=== PATIENT | female | born 1975 | race Caucasian/White ===

== ENCOUNTER 2016-11-05 14:01 | Emergency (ER) | payer OTHER ==
--- NOTE | 2016-11-05 14:27 | ERNOTE ---
Back Pain ER HPI Date of Service: 11/05/16 Presenting Symptoms: hx chronic back pain, other - States that for the past 2 days she has had worsening pain in her tailbone Time Seen by Provider: 11/05/16 14:16 Source: patient Exam Limitations: no limitations Immunizations: IMMUNIZATION HX Immunizations Up to Date Yes History of Influenza Vaccine No Hx Pneumococcal Vaccination No Allergies/Adverse Reactions: Allergies No Known Allergies Allergy (Verified 11/05/16 14:17) Home Medications: HOME MEDICATIONS amLODIPine BESYLATE [Norvasc] 10 mg PO DAILY 02/03/13 [Last Taken 08/08/13] Hydrochlorothiazide [Hydrodiuril] 25 mg PO DAILY 04/12/15 [Last Taken Unknown] HYDROcodone/ACETAMINOPHEN [Aladdin 5-325] 1 tab PO Q4H PRN 11/05/16 [Last Taken Unknown] Meloxicam [Mobic] 15 mg PO DAILY 11/05/16 [Last Taken Unknown] RX: lamoTRIgine [Lamotrigine] 25 mg PO DAILY 11/05/16 [Last Taken Unknown] Ranitidine HCl [Zantac] 150 mg PO DAILY 11/05/16 [Last Taken Unknown] risperiDONE [Risperdal] 2 mg PO DAILY 11/05/16 [Last Taken Unknown] Time (Timing): 02:00 Timing: Reports: getting worse Quality/Severity: Reports: moderate, burning, throbbing Location of pain: Reports: other - coccyx. No radiation. 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 Recent Injury?: Reports: no Possible Precipitating Factor: Reports: none - Long travel Modifying Factors - (Improves): Reports: movement to right, movement to left Modifying Factors - (Worsens): Reports: upright position Associated Symptoms: Reports: none Review of Systems - Review of Systems Constitutional: Present: no symptoms reported Respiratory: Present: no symptoms reported Cardiology: Present: no symptoms reported Gastrointestinal/Abdominal: Present: no symptoms reported, other - Denies any combination. Genitourinary: Present: no symptoms reported Musculoskeletal: Present: other - Has chronic lower back pain which she states she takes norco. Has a contract at pain clinic. However complains of the pain at the top of her buttock cleft. Skin: Present: no symptoms reported, other - States she does have a history of pilonidal cyst. States this feels similar but cannot detect an infection. Neurological: Present: no symptoms reported Endocrine: Present: no symptoms reported Hematologic/Lymphatic: Present: no symptoms reported - Patient's Past Medical History Patient History - Medical: Bipolar, Chronic Pain, Depression Patient History - Cardiac/Respiratory: Hypertension Patient History - Cancer: No Hx of Cancer Patient History - Surgical Procedures: Cholecystectomy, D & C, Hysterectomy, Tubal Ligation, Other Patient History - Other: None - Family History Father Family History - Cardiac/Respiratory: Hypertension - Social History Living Situations: home Abuse History: No History of abuse Psych History: Hx of Anxiety, Hx of Depression Does anyone smoke in the home?: Yes Smoking Status: Current every day smoker Have you smoked in the past 12 months: Yes Alcohol Use: rarely Drug Use: other - Immunizations Immunizations Up to Date: Yes Hx Pneumococcal Vaccination: No History of Influenza Vaccine: No Physical Exam - Physical Exam General Appearance: Present: wd/wn, alert, no apparent distress Respiratory: Present: no respiratory distress, no accessory muscle use Back Exam: Present: other - Very tender with palpation over the upper coccyx. No abnormal bony structure. Patient switches position to the right and left depending on pain and comfort level. Appears to be uncomfortable sitting upright. Neurological Exam: Present: alert, oriented, normal mood/affect, no motor/ sensory deficits Skin Exam: Present: normal color, warm/dry, other - With RN Colbi, did inspect area in question. No erythema, swelling or indication of a cyst present in or around the gluteal area. ED Progress - Vital Signs Patient's Vital Signs:: I have reviewed the patient's vital signs. Vital Signs: Vital Signs 11/05/16 14:06 Temperature 36.5 C Pulse Rate 95 Respiratory 16 Rate Blood Pressure 129/75 O2 Sat by Pulse 96 Oximetry - X-Ray X-Ray #1 X-Ray: coccyx Interpretation: Reviewed by me - Progress/Reassessment Chief Complaint: Back Pain Progress:: Improved Departure Clinical Impression: Coccygeal pain, acute - Departure Disposition: Home Follow Up Needed Condition: Stable Instructions: Tailbone Injury, [id number] Additional Instructions: No acute fracture or signs of an abcess/cyst. Continue your home medication as you are. Should improve over the next several days. If not follow up with family provider or return to ER.
[2016-11-05] MEDS ORDERED: KETOROLAC TROMETHAMINE 60 MG/2 ML VIAL IM ONE ×2 (14:34→14:43)
--- OUTSIDE RECORDS SUMMARY | 2016-11-05 14:46 | XMS REPORT | Summary of Care ---
:1975 Author Organization [facility] Address [address] [place] [id number] Care Team Providers Name Role Phone Rolanda Garcia Primary Care Physician Encounter Date(s): 06/27/16 - 06/27/[address] [address] [facility] Discharge Diagnosis: Essential (primary) hypertension Discharge Diagnosis: Pure hyperglyceridemia Discharge Diagnosis: Lactose intolerance, unspecified Discharge Diagnosis: Allergic rhinitis, unspecified Discharge Diagnosis: Vitamin D deficiency, unspecified Discharge Diagnosis: Nicotine dependence, unspecified, uncomplicated Discharge Disposition: 01 Discharged to Home or Self Care Attending Physician: Rolanda Garcia MD Referring Physician: Rolanda Garcia MD Vital Signs Most recent to oldest [Reference Range]: 1 Temperature Tympanic [36.6-38.1 DegC] 36.7 DegC (06/27/16 9:17 AM) Temperature C to F 98.1 (06/27/16 9:17 AM) Peripheral Pulse Rate [60-100 bpm] 86 bpm (06/27/16 9:17 AM) Respiratory Rate [12-20 br/min] 16 br/min (06/27/16 9:17 AM) SpO2 [90-100 %] 97 % (06/27/16 9:17 AM) SpO2 Location Right hand (06/27/16 9:17 AM) Blood Pressure [90-130/60-90 mmHg] 118/74mmHg (06/27/16 9:17 AM) Mean Arterial Pressure, Cuff 89 mmHg (06/27/16 9:17 AM) Most recent to oldest [Reference Range]: 1 Height/Length Measured 162 cm (06/27/16 9:17 AM) Weight Dosing 80.6 kg (06/27/16 9:17 AM) Weight Measured 80.6 kg (06/27/16 9:17 AM) BSA Measured 1.86 m2 (06/27/16 9:17 AM) Body Mass Index Measured 30.71 kg/m2 (06/27/16 9:17 AM) Problem List Condition Effective Dates Status Health Status Informant Ankle pain(Confirmed) Active Back pain, chronic(Confirmed) Active Hypertension(Confirmed) Active Vitamin D deficiency(Confirmed) Active Allergies, Adverse Reactions, Alerts No Known Allergies Medications amLODIPine 10 mg oral tablet 1 tab(s), Oral, Daily, # 30 tab(s), 0 Refill(s), Start Date: 08/19/15 11:06:00 CDT Start Date: 08/19/15 Stop Date: 02/21/16 Status: DiscontinuedamLODIPine 10 mg oral tablet 1 tab(s), Oral, Daily, # 30 tab(s), 2 Refill(s), Start Date: 02/21/16 9:51:00 PAINT LINE OPERATOR, [facility]acy: [facility] [place] [place] Start Date: 02/21/16 Stop Date: 05/02/16 Status: CompletedamLODIPine 10 mg oral tablet 1 tab(s), Oral, Daily, # 30 tab(s), 2 Refill(s), Start Date: 05/02/16 11:23:44 PAINT LINE OPERATOR, [facility]acy: [facility] [place] [place] Start Date: 05/02/16 Status: Orderedamoxicillin 875 mg oral tablet 1 tab(s), Oral, BID, # 20 tab(s), 0 Refill(s), Start Date: 03/22/16 11:14:00 PAINT LINE OPERATOR , [place] Start Date: 03/22/16 Stop Date: 04/05/16 Status: CompletedAzithromycin 5 Day Dose Pack 250 mg oral tablet 1 packet(s), Oral, Per Package Label, as directed on package labeling, # 6 tab(s ), 0 Refill(s), Start Date: 03/31/16 8:53:00 PAINT LINE OPERATOR, Pharmacy: [facility] [place], [place] Special Instructions: as directed on package labeling Start Date: 03/31/16 Stop Date: 04/05/16 Status: CompletedBlack Cohosh 540 mg Black Cohosh 540 mg, 0 Refill(s), Supply Start Date: 08/19/15 Status: OrderedDaily Multiple for Women 1 tab(s), Oral, Daily, 0 Refill(s), Start Date: 08/19/15 11:09:00 CDT Start Date: 08/19/15 Status: OrderedDiflucan 150 mg oral tablet See Instructions, 1 tab(s) Oral every 72 hours x 3 doses, # 3 EA, 0 Refill(s), Start Date: 05/02/16 11:21:00 PAINT LINE OPERATOR, [facility]acy: [facility] [place] [place] Special Instructions: 1 tab(s) Oral every 72 hours x 3 doses Start Date: 05/02/16 Stop Date: 06/27/16 Status: CompletedDiflucan 150 mg oral tablet 1 tab(s), Oral, ONETIME, # 1 tab(s), 0 Refill(s), Start Date: 04/21/16 15:18:00 PAINT LINE OPERATOR, [facility]acy: [facility] [place] [place] Start Date: 04/21/16 Stop Date: 05/02/16 Status: CompletedDiflucan 150 mg oral tablet 1 tab(s), Oral, ONETIME, # 1 tab(s), 0 Refill(s), Start Date: 04/05/16 11:56:00 PAINT LINE OPERATOR Start Date: 04/05/16 Stop Date: 05/02/16 Status: Completedgabapentin 300 mg oral capsule 2 cap(s), Oral, TID, 0 Refill(s), Start Date: 02/14/16 9:51:00 CDT Start Date: 02/14/16 Status: OrderedhydroCHLOROthiazide 25 mg oral tablet 1 tab(s), Oral, Daily, # 30 tab(s), 2 Refill(s), Start Date: 02/21/16 9:57:00 PAINT LINE OPERATOR, Pharmacy: [facility] [place] [place] Start Date: 02/21/16 Stop Date: 05/02/16 Status: Completedhydrochlorothiazide 25 mg oral tablet 1 tab(s), Oral, Daily, # 30 tab(s), 0 Refill(s), Start Date: 08/19/15 11:07:00 CDT Start Date: 08/19/15 Stop Date: 02/21/16 Status: DiscontinuedhydroCHLOROthiazide 25 mg oral tablet 1 tab(s), Oral, Daily, # 30 tab(s), 2 Refill(s), Start Date: 05/02/16 11:23:43 PAINT LINE OPERATOR, [facility]acy: [facility] [place] [place] Start Date: 05/02/16 Status: OrderedHYDROcodone-acetaminophen 5 mg-325 mg oral tablet 1 tab(s), Oral, q6hr, X 30 days, # 120 tab(s), 0 Refill(s), Start Date: 11:23:00 CDT, other reason (Rx) Start Date: 08/19/15 Stop Date: 09/18/15 Status: CompletedHYDROcodone-acetaminophen 5 mg-325 mg oral tablet 0 Refill(s), Start Date: 08/19/15 11:07:00 CDT Start Date: 08/19/15 Stop Date: 09/28/15 Status: Completedibuprofen 800 mg oral tablet 1 tab(s), Oral, TID, # 42 tab(s), 0 Refill(s), Start Date: 11/30/15 9:35:00 CDT , Pharmacy: [place], [place] Start Date: 11/30/15 Stop Date: 06/27/16 Status: CompletedLipitor 10 mg oral tablet 1 tab(s), Oral, Daily, # 30 tab(s), 5 Refill(s), Start Date: 06/27/16 9:56:00 CDT, Pharmacy: [place], [place] Start Date: 06/27/16 Status: OrderedMedrol 4 mg oral tablet 1 packet(s), Oral, ONETIME, as directed on package labeling, # 21 tab(s), 0 Refill(s), Start Date: 11/25/15 15:31:00 CDT, Pharmacy: [place], [place] Special Instructions: as directed on package labeling Start Date: 11/25/15 Stop Date: 02/14/16 Status: Completedmeloxicam 15 mg oral tablet 0.5 tab(s), Oral, BID, 0 Refill(s), Start Date: 06/27/16 9:20:00 CDT Start Date: 06/27/16 Status: OrderedNorco 5 mg-325 mg oral tablet 1 tab(s), Oral, q6hr, PRN for pain, # 48 tab(s), 0 Refill(s), Start Date: 13:42:00 CDT, other reason (Rx) Start Date: 09/16/15 Stop Date: 09/28/15 Status: CompletedNorco 5 mg-325 mg oral tablet 1 tab(s), Oral, q6hr, PRN for pain, written RX given to patient, # 120 tab(s), 0 Refill(s), Start Date: 10/28/15 15:19:28 CDT, other reason (Rx) Special Instructions: written RX given to patient Start Date: 10/28/15 Status: OrderedNorco 5 mg-325 mg oral tablet 1 tab(s), Oral, q6hr, PRN for pain, written RX given to patient, # 120 tab(s), 0 Refill(s), Start Date: 09/28/15 9:18:00 CDT, other reason (Rx) Special Instructions: written RX given to patient Start Date: 09/28/15 Stop Date: 10/28/15 Status: CompletedOmnicef 300 mg oral capsule 1 cap(s), Oral, q12hr, # 20 cap(s), 0 Refill(s), Start Date: 04/05/16 11:56:00 PAINT LINE OPERATOR Start Date: 04/05/16 Stop Date: 05/02/16 Status: CompletedoxyCODONE-acetaminophen 5 mg-325 mg oral tablet See Instructions, 1 tab(s) Oral q4-6hr interval Max 7 per day, # 90 tab(s), 0 Refill(s), Start Date: 08/19/15 11:21:00 CDT Special Instructions: 1 tab(s) Oral q4-6hr interval Max 7 per day Start Date: 08/19/15 Stop Date: 08/19/15 Status: Discontinuedpolymyxin B-trimethoprim 10,000 units-1 mg/mL ophthalmic solution 2 drop(s), Eye-Both, QID, X 7 days, # 10 mL, 0 Refill(s), Start Date: 05/02/16 11:28:00 PAINT LINE OPERATOR, Pharmacy: [place], [place] Start Date: 05/02/16 Stop Date: 05/09/16 Status: Completedpotassium chloride 99 mg oral tablet 1 tab(s), Oral, Daily, # 100 tab(s), 0 Refill(s), Start Date: 08/19/15 11:08:00 CDT Start Date: 08/19/15 Status: OrderedVitamin B-12 1000 mcg oral tablet 1 tab(s), Oral, Daily, 0 Refill(s), Start Date: 08/19/15 11:10:00 CDT Start Date: 08/19/15 Status: OrderedVitamin C 500 mg oral tablet 1 tab(s), Oral, Daily, # 30 tab(s), 0 Refill(s), Start Date: 08/19/15 11:09:00 CDT Start Date: 08/19/15 Status: OrderedVitamin D3 1000 intl units oral tablet 1 tab(s), Oral, Daily, # 30 tab(s), 0 Refill(s), Start Date: 06/27/16 9:46:00 CDT Start Date: 06/27/16 Status: OrderedVitamin D3 50,000 intl units oral capsule 1 cap(s), Oral, q7day, # 12 cap(s), 0 Refill(s), Start Date: 03/23/16 11:08:00 PAINT LINE OPERATOR, Pharmacy: [place], [place] Start Date: 03/23/16 Stop Date: 03/24/16 Status: DiscontinuedVitamin D3 50,000 intl units oral capsule 1 cap(s), Oral, q7day, Prior auth rec'd for approval for 4 every 30 days, # 4 cap(s), 5 Refill(s), Start Date: 03/24/16 15:10:05 PAINT LINE OPERATOR, Pharmacy: [place], [place] Special Instructions: Prior auth rec'd for approval for 4 every 30 days Start Date: 03/24/16 Stop Date: 06/27/16 Status: DiscontinuedVitamin D3 5000 intl units oral tablet 1 tab(s), Oral, Daily, # 100 tab(s), 0 Refill(s), Start Date: 08/19/15 11:10:00 CDT Start Date: 08/19/15 Stop Date: 06/27/16 Status: DiscontinuedZofran ODT 4 mg oral tablet, disintegrating 1 tab(s), Oral, q8hr interval, PRN nausea, # 30 tab(s), 0 Refill(s), Start Date : 02/14/16 10:26:00 CDT, Pharmacy: [facility] [place] [place] Start Date: 02/14/16 Stop Date: 06/27/16 Status: CompletedZyrTEC 10 mg oral tablet 1 tab(s), Oral, Daily, # 30 tab(s), 0 Refill(s), Start Date: 08/19/15 11:13:00 CDT Start Date: 08/19/15 Status: Ordered Results No data available for this section Immunizations Vaccine Date Refusal Reason influenza virus vaccine, inactivated 02/14/16 tetanus-diphth toxoids (Td) adult/adol 06/27/16 Procedures Procedure Date Related Diagnosis Body Site Dilation and curettage Hysterectomy Removal of gallbladder Rotator cuff repair Tubal ligation Social History No data available for this section Assessment and Plan No data available for this section
--- OUTSIDE RECORDS SUMMARY | 2016-11-05 14:46 | XMS REPORT | Summary of Care ---
:1975 Author Organization [facility] Address [address] [place] [id number] Care Team Providers Name Role Phone Rolanda Garcia Primary Care Physician Encounter Date(s): 07/24/16 - 07/24/[address] [address] [facility] Discharge Disposition: Discharged to Home or Self Care Attending Physician: Rolanda Garcia MD Referring Physician: Rolanda Garcia MD Vital Signs No data available for this section Problem List Condition Effective Dates Status Health [...] tab(s), 2 Refill(s), Start Date: 02/21/16 9:51:00 [address] LIGHT SERVICER, [facility] [place] [place] Start Date: 02/21/16 Stop Date: 05/02/16 Status: CompletedamLODIPine 10 mg oral tablet 1 tab(s), Oral, Daily, # 30 tab(s), 2 Refill(s), Start Date: 05/02/16 11:23:44 ST[address] LIGHT SERVICER, [facility]acy: [facility] [place] [place] Start Date: 05/02/16 Status: Orderedamoxicillin 875 mg oral tablet 1 tab(s), Oral, BID, # 20 tab(s), 0 Refill(s), Start Date: 03/22/16 11:14:00 [address] LIGHT SERVICER , Pharmacy: [facility] [place] [place] Start Date: 03/22/16 Stop Date: 04/05/16 Status: CompletedAzithromycin 5 Day Dose Pack 250 mg oral tablet 1 packet(s), Oral, Per Package Label, as directed on package labeling, # 6 tab(s ), 0 Refill(s), Start Date: 03/31/16 8:53:[address] LIGHT SERVICER, Pharmacy: [facility] [place] [place] Special Instructions: as directed on package [...] EA, 0 Refill(s), Start Date: 05/02/16 11:21:[address] LIGHT SERVICER, [place] [facility] [place] Special Instructions: 1 tab(s) Oral every 72 hours x 3 doses Start Date: 05/02/16 Stop Date: 06/27/16 Status: CompletedDiflucan 150 mg oral tablet 1 tab(s), Oral, ONETIME, # 1 tab(s), 0 Refill(s), Start Date: 04/21/16 15:18:[address] LIGHT SERVICER, Pharmacy: [facility] [place] [place] Start Date: 04/21/16 Stop Date: 05/02/16 Status: CompletedDiflucan 150 mg oral tablet 1 tab(s), Oral, ONETIME, # 1 tab(s), 0 Refill(s), Start Date: 04/05/16 11:56:[address] LIGHT SERVICER Start Date: 04/05/16 Stop Date: 05/02/16 Status: Completedgabapentin 300 mg oral capsule 2 cap(s), Oral, TID, 0 Refill(s), Start Date: 02/14/16 9:51:00 CDT Start Date: 02/14/16 Status: OrderedhydroCHLOROthiazide 25 mg oral tablet 1 tab(s), Oral, Daily, # 30 tab(s), 2 Refill(s), Start Date: 02/21/16 9:57:[address] LIGHT SERVICER, Pharmacy: [facility] [place] [place] Start Date: 02/21/16 Stop Date: 05/02/16 Status: Completedhydrochlorothiazide 25 mg oral tablet 1 tab(s), Oral, Daily, # 30 tab(s), 0 Refill(s), Start Date: 08/19/15 11:07:00 CDT Start Date: 08/19/15 Stop Date: 02/21/16 Status: DiscontinuedhydroCHLOROthiazide 25 mg oral tablet 1 tab(s), Oral, Daily, # 30 tab(s), 2 Refill(s), Start Date: 05/02/16 11:23:43 [address] LIGHT SERVICER, Pharmacy: [facility] [place] [place] Start Date: 05/02/16 Status: OrderedHYDROcodone-acetaminophen 5 [...] Start Date: 11/30/15 9:35:00 CDT , Pharmacy: [facility] [place], [place] Start Date: 11/30/15 Stop Date: 06/27/16 Status: CompletedLipitor 10 mg oral tablet 1 tab(s), Oral, Daily, # 30 tab(s), 5 Refill(s), Start Date: 06/27/16 9:56:00 CDT, [facility] [place] Start Date: 06/27/16 Status: OrderedMedrol 4 mg oral tablet 1 packet(s), Oral, ONETIME, as directed on package labeling, # 21 tab(s), 0 Refill(s), Start Date: 11/25/15 15:31:00 CDT, Pharmacy: [facility] [place], [place] Special Instructions: as directed on package [...] cap(s), 0 Refill(s), Start Date: 04/05/16 11:56:[address] LIGHT SERVICER Start Date: 04/05/16 Stop Date: 05/02/16 Status: [...] mL, 0 Refill(s), Start Date: 05/02/16 11:28:[address] LIGHT SERVICER, Pharmacy: [facility] [place] [place] Start Date: 05/02/16 Stop Date: 05/09/16 [...] cap(s), 0 Refill(s), Start Date: 03/23/16 11:08:[address] LIGHT SERVICER, [place]acy[place] Start Date: 03/23/16 Stop Date: 03/24/16 Status: DiscontinuedVitamin D3 50,000 intl units oral capsule 1 cap(s), Oral, q7day, Prior auth rec'd for approval for 4 every 30 days, # 4 cap(s), 5 Refill(s), Start Date: 03/24/16 15:10:[address] LIGHT SERVICER, Pharmacy: [place], [place] Special Instructions: Prior auth rec'd for [...] Start Date : 02/14/16 10:26:00 CDT, Pharmacy: [place], [place] Start Date: 02/14/16 Stop Date: 06/27/16 [...]
--- OUTSIDE RECORDS SUMMARY | 2016-11-05 14:46 | XMS REPORT | Summary of Care ---
:1975 Author Organization [facility] Care Team Providers Name Role Phone Rolanda Garcia Primary Care Physician Encounter Date(s): 09/26/16 - 09/26/16 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, Pharmacy: [facility], [place] Start Date: 02/21/16 Stop Date: 05/02/16 Status: CompletedamLODIPine 10 mg oral tablet 1 tab(s), Oral, Daily, # 30 tab(s), 2 Refill(s), Start Date: 05/02/16 11:23:44 VENEER SUPERVISOR, [facility] [place] [place] Start Date: 05/02/16 Stop Date: 08/25/16 Status: Completedamoxicillin 875 mg oral tablet 1 tab(s), Oral, BID, # 20 tab(s), 0 Refill(s), Start Date: 03/22/16 11:14:00 VENEER SUPERVISOR , Pharmacy: [facility] [place], [place] Start Date: 03/22/16 Stop Date: 04/05/16 Status: CompletedAzithromycin 5 Day Dose Pack 250 mg oral tablet 1 packet(s), Oral, Per Package Label, as directed on package labeling, # 6 tab(s ), 0 Refill(s), Start Date: 03/31/16 8:53:00 VENEER SUPERVISOR, Pharmacy: [facility] [place], [place] Special Instructions: as directed on package labeling Start Date: 03/31/16 Stop Date: 04/05/16 Status: CompletedBlack Cohosh 540 mg Black Cohosh 540 mg, 0 Refill(s), Supply Start Date: 08/19/15 Status: OrderedCipro 500 mg oral tablet 1 tab(s), Oral, BID, # 20 tab(s), 0 Refill(s), Start Date: 09/21/16 14:01:00 CDT , [facility] [place] Start Date: 09/21/16 Stop Date: 10/01/16 Status: OrderedDaily Multiple for Women 1 tab(s), Oral, Daily, 0 Refill(s), Start Date: 08/19/15 11:09:00 CDT Start Date: 08/19/15 Status: OrderedDiflucan 150 mg oral tablet See Instructions, 1 tab(s) Oral every 72 hours x 3 doses, # 3 EA, 0 Refill(s), Start Date: 05/02/16 11:21:00 VENEER SUPERVISOR, [facility] [place] [place] Special Instructions: 1 tab(s) Oral every 72 hours x 3 doses Start Date: 05/02/16 Stop Date: 06/27/16 Status: CompletedDiflucan 150 mg oral tablet 1 tab(s), Oral, ONETIME, # 1 tab(s), 0 Refill(s), Start Date: 04/21/16 15:18:00 VENEER SUPERVISOR, [facility] [place] Start Date: 04/21/16 Stop Date: 05/02/16 Status: CompletedDiflucan 150 mg oral tablet 1 tab(s), Oral, ONETIME, # 1 tab(s), 1 Refill(s), Start Date: 09/21/16 16:16:00 CDT, Pharmacy: [place], [place] Start Date: 09/21/16 Status: OrderedDiflucan 150 mg oral tablet 1 tab(s), Oral, ONETIME, # 1 tab(s), 0 Refill(s), Start Date: 04/05/16 11:56:00 VENEER SUPERVISOR Start Date: 04/05/16 Stop Date: 05/02/16 Status: Completedgabapentin 300 mg oral capsule 2 cap(s), Oral, TID, 0 Refill(s), Start Date: 02/14/16 9:51:00 CDT Start Date: 02/14/16 Status: OrderedhydroCHLOROthiazide 25 mg oral tablet 1 tab(s), Oral, Daily, # 30 tab(s), 2 Refill(s), Start Date: 02/21/16 9:57:00 VENEER SUPERVISOR, [facility] [place] Start Date: 02/21/16 Stop Date: 05/02/16 Status: Completedhydrochlorothiazide 25 mg oral tablet 1 tab(s), Oral, Daily, # 30 tab(s), 0 Refill(s), Start Date: 08/19/15 11:07:00 CDT Start Date: 08/19/15 Stop Date: 02/21/16 Status: DiscontinuedhydroCHLOROthiazide 25 mg oral tablet 1 tab(s), Oral, Daily, # 30 tab(s), 2 Refill(s), Start Date: 08/25/16 14:13:52 CDT, Pharmacy: [place], [place] Start Date: 08/25/16 Status: OrderedhydroCHLOROthiazide 25 mg oral tablet 1 tab(s), Oral, Daily, # 30 tab(s), 2 Refill(s), Start Date: 05/02/16 11:23:43 VENEER SUPERVISOR, Pharmacy: [facility] [place], [place] Start Date: 05/02/16 Stop Date: 08/25/16 Status: CompletedHYDROcodone-acetaminophen 5 mg-325 mg oral tablet 1 tab(s), [...] Start Date: 11/30/15 9:35:00 CDT , Pharmacy: [place], [place] Start Date: 11/30/15 Stop Date: 06/27/16 Status: CompletedLipitor 10 mg oral tablet 1 tab(s), Oral, Daily, # 30 tab(s), 5 Refill(s), Start Date: 06/27/16 9:56:00 CDT, Pharmacy: [place], [place] Start Date: 06/27/16 Status: OrderedMedrol 4 mg oral tablet 1 packet(s), Oral, ONETIME, as directed on package labeling, # 21 tab(s), 0 Refill(s), Start Date: 11/25/15 15:31:00 CDT, Pharmacy: [place], [place] Special Instructions: as directed on package labeling Start Date: 11/25/15 Stop Date: 02/14/16 Status: Completedmeloxicam 15 mg oral tablet 0.5 tab(s), Oral, BID, 0 Refill(s), Start Date: 06/27/16 9:20:00 CDT Start Date: 06/27/16 Status: OrderedmetroNIDAZOLE 500 mg oral tablet 1 tab(s), Oral, q8hr interval, # 42 tab(s), 0 Refill(s), Start Date: 09/16/16 13 :40:00 CDT, Pharmacy: [place], [place] Start Date: 09/16/16 Stop Date: 09/30/16 Status: OrderedNorco 5 mg-325 mg oral tablet [...] cap(s), 0 Refill(s), Start Date: 04/05/16 11:56:00 VENEER SUPERVISOR Start Date: 04/05/16 Stop Date: 05/02/16 Status: [...] mL, 0 Refill(s), Start Date: 05/02/16 11:28:00 VENEER SUPERVISOR, Pharmacy: [facility] [place], [place] Start Date: 05/02/16 Stop Date: 05/09/16 Status: Completedpotassium chloride 99 mg oral tablet 1 tab(s), Oral, Daily, # 100 tab(s), 0 Refill(s), Start Date: 08/19/15 11:08:00 CDT Start Date: 08/19/15 Status: OrderedraNITIdine 150 mg oral tablet 1 tab(s), Oral, BID, # 60 tab(s), 0 Refill(s), Start Date: 09/15/16 13:52:00 CDT , [facility] [place] Start Date: 09/15/16 Stop Date: 10/15/16 Status: OrderedVitamin B-12 1000 mcg oral tablet [...] cap(s), 0 Refill(s), Start Date: 03/23/16 11:08:00 VENEER SUPERVISOR, Pharmacy: [facility] [place], [place] Start Date: 03/23/16 Stop Date: 03/24/16 Status: DiscontinuedVitamin D3 50,000 intl units oral capsule 1 cap(s), Oral, q7day, Prior auth rec'd for approval for 4 every 30 days, # 4 cap(s), 5 Refill(s), Start Date: 03/24/16 15:10:05 VENEER SUPERVISOR, Pharmacy: [place], [place] Special Instructions: Prior auth rec'd for approval for 4 every 30 days Start Date: 03/24/16 Stop Date: 06/27/16 Status: DiscontinuedVitamin D3 5000 intl units oral tablet 1 tab(s), Oral, Daily, # 100 tab(s), 0 Refill(s), Start Date: 08/19/15 11:10:00 CDT Start Date: 08/19/15 Stop Date: 06/27/16 Status: DiscontinuedZofran 4 mg oral tablet 1 tab(s), Oral, q8hr interval, PRN nausea, # 15 tab(s), 0 Refill(s), Start Date : 09/15/16 13:52:00 CDT, Pharmacy: [place], [place] Start Date: 09/15/16 Stop Date: 09/21/16 Status: DiscontinuedZofran 4 mg oral tablet 1 tab(s), Oral, q8hr interval, PRN nausea, # 15 tab(s), 0 Refill(s), Start Date : 09/21/16 14:02:43 CDT, Pharmacy: [place], [place] Start Date: 09/21/16 Stop Date: 09/26/16 Status: OrderedZofran ODT 4 mg oral tablet, disintegrating 1 tab(s), Oral, q8hr interval, PRN nausea, # 30 tab(s), 0 Refill(s), Start Date : 02/14/16 10:26:00 CDT, Pharmacy: [place], [place] Start Date: 02/14/16 Stop Date: 06/27/16 [...]
--- OUTSIDE RECORDS SUMMARY | 2016-11-05 14:47 | XMS REPORT | Summary of Care ---
:1975 Author Organization [facility] Address [address] [place] [id number] Care Team Providers Name Role Phone Rolanda Gracia Primary Care Physician Encounter Date(s): 09/15/16 - 09/15/[address] [address] [facility] Discharge Diagnosis: Gastroenteritis Discharge Diagnosis: Diarrhea Discharge Diagnosis: Abdominal pain Discharge Diagnosis: Nausea Discharge Disposition: Discharged to Home or Self Care Attending Physician: SUZIE Thompson Referring Physician: Rolanda Garcia MD Vital Signs Most recent to oldest [Reference Range]: 1 Temperature Tympanic [36.6-38.1 DegC] 36.8 DegC (09/15/16 1:24 PM) Temperature C to F 98.2 (09/15/16 1:24 PM) Peripheral Pulse Rate [60-100 bpm] 84 bpm (09/15/16 1:24 PM) Blood Pressure [90-130/60-90 mmHg] 112/78mmHg (09/15/16 1:24 PM) Mean Arterial Pressure, Cuff 89 mmHg (09/15/16 1:24 PM) Most recent to oldest [Reference Range]: 1 Height/Length Measured 162 cm (09/15/16 1:24 PM) Weight Dosing 76.2 kg (09/15/16 1:24 PM) Weight Measured 76.2 kg (09/15/16 1:24 PM) BSA Measured 1.81 m2 (09/15/16 1:24 PM) Body Mass Index Measured 29.04 kg/m2 (09/15/16 1:24 PM) Problem List Condition Effective Dates Status Health [...] Refill(s), Start Date: 08/25/16 14:13:51 CDT, [facility] [place] Start Date: 08/25/16 Status: OrderedamLODIPine 10 mg oral tablet 1 tab(s), Oral, Daily, # 30 tab(s), 2 Refill(s), Start Date: 02/21/16 9:51:00 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, [facility]: [facility] [place] [place] Start Date: 02/21/16 Stop Date: 05/02/16 Status: CompletedamLODIPine 10 mg oral tablet 1 tab(s), Oral, Daily, # 30 tab(s), 2 Refill(s), Start Date: 05/02/16 11:23:44 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, [facility] [place] [place] Start Date: 05/02/16 Stop Date: 08/25/16 Status: Completedamoxicillin 875 mg oral tablet 1 tab(s), Oral, BID, # 20 tab(s), 0 Refill(s), Start Date: 03/22/16 11:14:00 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 , Pharmacy: [facility] [place], [place] Start Date: 03/22/16 Stop Date: 04/05/16 Status: CompletedAzithromycin 5 Day Dose Pack 250 mg oral tablet 1 packet(s), Oral, Per Package Label, as directed on package labeling, # 6 tab(s ), 0 Refill(s), Start Date: 03/31/16 8:53:00 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, Pharmacy: [facility] [place], [place] Special Instructions: as directed on package [...] EA, 0 Refill(s), Start Date: 05/02/16 11:21:00 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, [facility] [place] [place] Special Instructions: 1 tab(s) Oral every 72 hours x 3 doses Start Date: 05/02/16 Stop Date: 06/27/16 Status: CompletedDiflucan 150 mg oral tablet 1 tab(s), Oral, ONETIME, # 1 tab(s), 0 Refill(s), Start Date: 04/21/16 15:18:00 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, Pharmacy: [facility] [place], [place] Start Date: 04/21/16 Stop Date: 05/02/16 Status: CompletedDiflucan 150 mg oral tablet 1 tab(s), Oral, ONETIME, # 1 tab(s), 0 Refill(s), Start Date: 04/05/16 11:56:00 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 Start Date: 04/05/16 Stop Date: 05/02/16 Status: Completedgabapentin 300 mg oral capsule 2 cap(s), Oral, TID, 0 Refill(s), Start Date: 02/14/16 9:51:00 CDT Start Date: 02/14/16 Status: OrderedhydroCHLOROthiazide 25 mg oral tablet 1 tab(s), Oral, Daily, # 30 tab(s), 2 Refill(s), Start Date: 02/21/16 9:57:00 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, [facility] [place] [place] Start Date: 02/21/16 Stop Date: 05/02/16 Status: Completedhydrochlorothiazide 25 mg oral tablet 1 tab(s), Oral, Daily, # 30 tab(s), 0 Refill(s), Start Date: 08/19/15 11:07:00 CDT Start Date: 08/19/15 Stop Date: 02/21/16 Status: DiscontinuedhydroCHLOROthiazide 25 mg oral tablet 1 tab(s), Oral, Daily, # 30 tab(s), 2 Refill(s), Start Date: 08/25/16 14:13:52 CDT, Pharmacy: [place], [place] Start Date: 08/25/16 Status: OrderedhydroCHLOROthiazide 25 mg oral tablet 1 tab(s), Oral, Daily, # 30 tab(s), 2 Refill(s), Start Date: 05/02/16 11:23:43 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, [place] [facility] [place] Start Date: 05/02/16 Stop Date: 08/25/16 [...] 11/30/15 9:35:00 CDT , Pharmacy: [facility] [place], [place] Start Date: 11/30/15 Stop Date: 06/27/16 Status: CompletedLipitor 10 mg oral tablet 1 tab(s), Oral, Daily, # 30 tab(s), 5 Refill(s), Start Date: 06/27/16 9:56:00 CDT, Pharmacy: [place], [place] Start Date: 06/27/16 Status: OrderedMedrol 4 mg oral tablet 1 packet(s), Oral, ONETIME, as directed on package labeling, # 21 tab(s), 0 Refill(s), Start Date: 11/25/15 15:31:00 CDT, Pharmacy: [place] Special Instructions: as directed on package [...] cap(s), 0 Refill(s), Start Date: 04/05/16 11:56:00 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 Start Date: 04/05/16 Stop Date: 05/02/16 Status: [...] mL, 0 Refill(s), Start Date: 05/02/16 11:28:00 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, Pharmacy: [facility] [place], [place] Start Date: 05/02/16 Stop Date: 05/09/16 Status: Completedpotassium chloride 99 mg oral tablet 1 tab(s), Oral, Daily, # 100 tab(s), 0 Refill(s), Start Date: 08/19/15 11:08:00 CDT Start Date: 08/19/15 Status: OrderedraNITIdine 150 mg oral tablet 1 tab(s), Oral, BID, # 60 tab(s), 0 Refill(s), Start Date: 09/15/16 13:52:00 CDT , Pharmacy: [place], [place] Start Date: 09/15/16 Stop Date: 10/15/16 [...] cap(s), 0 Refill(s), Start Date: 03/23/16 11:08:00 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, Pharmacy: [facility] [place], [place] Start Date: 03/23/16 Stop Date: 03/24/16 Status: DiscontinuedVitamin D3 50,000 intl units oral capsule 1 cap(s), Oral, q7day, Prior auth rec'd for approval for 4 every 30 days, # 4 cap(s), 5 Refill(s), Start Date: 03/24/16 15:10:05 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, Pharmacy: [place], [place] Special Instructions: Prior auth rec'd for [...] Start Date : 09/15/16 13:52:00 CDT, [facility] [place] Start Date: 09/15/16 Stop Date: 09/20/16 Status: OrderedZofran ODT 4 mg oral tablet, disintegrating 1 tab(s), Oral, q8hr interval, PRN nausea, # 30 tab(s), 0 Refill(s), Start Date : 02/14/16 10:26:00 CDT, Pharmacy: [place], [place] Start Date: 02/14/16 Stop Date: 06/27/16 [...]
--- OUTSIDE RECORDS SUMMARY | 2016-11-05 14:47 | XMS REPORT | Summary of Care ---
:1975 Author Organization [facility] Address [address] [place] [id number] Care Team Providers Name Role Phone Rolanda Garcia Primary Care Physician Encounter Date(s): 10/24/16 - 10/24/16 [facility] [address] [place] [id number] [facility] Discharge Disposition: 01 Discharged to Home or Self Care Referring Physician: Rolanda Garcia MD Vital Signs [...] Refill(s), Start Date: 08/25/16 14:13:51 CDT, Pharmacy: [facility], [place], [place] Start Date: 08/25/16 Status: OrderedamLODIPine 10 mg oral tablet 1 tab(s), Oral, Daily, # 30 tab(s), 2 Refill(s), Start Date: 02/21/16 9:51:00 RO[address] TE[address], Pharmacy: [facility], [place] Start Date: 02/21/16 Stop Date: 05/02/16 Status: CompletedamLODIPine 10 mg oral tablet 1 tab(s), Oral, Daily, # 30 tab(s), 2 Refill(s), Start Date: 05/02/16 11:23:44 ROAD TESTER, Pharmacy: [facility] [place], [place] Start Date: 05/02/16 Stop Date: 08/25/16 Status: Completedamoxicillin 875 mg oral tablet 1 tab(s), Oral, BID, # 20 tab(s), 0 Refill(s), Start Date: 03/22/16 11:14:00 RO[address] TESTER , Pharmacy: [facility] [place], [place] Start Date: 03/22/16 Stop Date: 04/05/16 Status: CompletedAzithromycin 5 Day Dose Pack 250 mg oral tablet 1 packet(s), Oral, Per Package Label, as directed on package labeling, # 6 tab(s ), 0 Refill(s), Start Date: 03/31/16 8:53:00 RO[address] TESTER, [facility] [place] [place] Special Instructions: as directed on package labeling Start Date: 03/31/16 Stop Date: 04/05/16 Status: CompletedBlack Cohosh 540 mg Black Cohosh 540 mg, 0 Refill(s), Supply Start Date: 08/19/15 Status: OrderedCipro 500 mg oral tablet 1 tab(s), Oral, BID, # 20 tab(s), 0 Refill(s), Start Date: 09/21/16 14:01:00 CDT , [facility] [place] Start Date: 09/21/16 Stop Date: 10/01/16 Status: OrderedDaily Multiple for Women 1 tab(s), Oral, Daily, 0 Refill(s), Start Date: 08/19/15 11:09:00 CDT Start Date: 08/19/15 Status: OrderedDiflucan 150 mg oral tablet See Instructions, 1 tab(s) Oral every 72 hours x 3 doses, # 3 EA, 0 Refill(s), Start Date: 05/02/16 11:21:00 [address] TE[address], [facility] [place] [place] Special Instructions: 1 tab(s) Oral every 72 hours x 3 doses Start Date: 05/02/16 Stop Date: 06/27/16 Status: CompletedDiflucan 150 mg oral tablet 1 tab(s), Oral, ONETIME, # 1 tab(s), 0 Refill(s), Start Date: 04/21/16 15:18:00 RO[address] TE[address], [facility] [place] Start Date: 04/21/16 Stop Date: 05/02/16 Status: CompletedDiflucan 150 mg oral tablet 1 tab(s), Oral, ONETIME, # 1 tab(s), 1 Refill(s), Start Date: 09/21/16 16:16:00 CDT, Pharmacy: [place], [place] Start Date: 09/21/16 Status: OrderedDiflucan 150 mg oral tablet 1 tab(s), Oral, ONETIME, # 1 tab(s), 0 Refill(s), Start Date: 04/05/16 11:56:00 [address] TE[address] Start Date: 04/05/16 Stop Date: 05/02/16 Status: Completedgabapentin 300 mg oral capsule 2 cap(s), Oral, TID, 0 Refill(s), Start Date: 02/14/16 9:51:00 CDT Start Date: 02/14/16 Status: OrderedhydroCHLOROthiazide 25 mg oral tablet 1 tab(s), Oral, Daily, # 30 tab(s), 2 Refill(s), Start Date: 02/21/16 9:57:00 RO[address] TE[address], [facility] [place] Start Date: 02/21/16 Stop Date: 05/02/16 Status: Completedhydrochlorothiazide 25 mg oral tablet 1 tab(s), Oral, Daily, # 30 tab(s), 0 Refill(s), Start Date: 08/19/15 11:07:00 CDT Start Date: 08/19/15 Stop Date: 02/21/16 Status: DiscontinuedhydroCHLOROthiazide 25 mg oral tablet 1 tab(s), Oral, Daily, # 30 tab(s), 2 Refill(s), Start Date: 08/25/16 14:13:52 CDT, Pharmacy: [place], [place] Start Date: 08/25/16 Status: OrderedhydroCHLOROthiazide 25 mg oral tablet 1 tab(s), Oral, Daily, # 30 tab(s), 2 Refill(s), Start Date: 05/02/16 11:23:43 RO[address] TESTER, Pharmacy: [facility] [place], [place] Start Date: 05/02/16 Stop Date: 08/25/16 [...] Start Date: 11/30/15 9:35:00 CDT , Pharmacy: [place], [place] Start Date: 11/30/15 Stop Date: 06/27/16 Status: CompletedLipitor 10 mg oral tablet 1 tab(s), Oral, Daily, # 30 tab(s), 5 Refill(s), Start Date: 06/27/16 9:56:00 CDT, Pharmacy: [place], [place] Start Date: 06/27/16 Status: OrderedMedrol 4 mg oral tablet 1 packet(s), Oral, ONETIME, as directed on package labeling, # 21 tab(s), 0 Refill(s), Start Date: 11/25/15 15:31:00 CDT, Pharmacy: [place], [place] Special Instructions: as directed on package labeling Start Date: 11/25/15 Stop Date: 02/14/16 Status: Completedmeloxicam 15 mg oral tablet 0.5 tab(s), Oral, BID, 0 Refill(s), Start Date: 06/27/16 9:20:00 CDT Start Date: 06/27/16 Status: OrderedmetroNIDAZOLE 500 mg oral tablet 1 tab(s), Oral, q8hr interval, # 42 tab(s), 0 Refill(s), Start Date: 09/16/16 13 :40:00 CDT, Pharmacy: [place], [place] Start Date: 09/16/16 Stop Date: 09/30/16 [...] cap(s), 0 Refill(s), Start Date: 04/05/16 11:56:00 [address] TE[address] Start Date: 04/05/16 Stop Date: 05/02/16 Status: [...] mL, 0 Refill(s), Start Date: 05/02/16 11:28:00 [address], [place] [facility] Start Date: 05/02/16 Stop Date: 05/09/16 Status: Completedpotassium chloride 99 mg oral tablet 1 tab(s), Oral, Daily, # 100 tab(s), 0 Refill(s), Start Date: 08/19/15 11:08:00 CDT Start Date: 08/19/15 Status: OrderedraNITIdine 150 mg oral tablet 1 tab(s), Oral, BID, X 30 days, # 60 tab(s), 0 Refill(s), Start Date: 09/15/16 13:52:00 CDT, Pharmacy: [place], [place] Start Date: 09/15/16 Stop Date: 10/18/16 Status: CompletedraNITIdine 150 mg oral tablet 1 tab(s), Oral, BID, # 60 tab(s), 1 Refill(s), Start Date: 10/18/16 13:39:22 CDT , Pharmacy: [place], [place] Start Date: 10/18/16 Stop Date: 12/17/16 Status: OrderedVitamin B-12 1000 mcg oral tablet [...] cap(s), 0 Refill(s), Start Date: 03/23/16 11:08:00 [address], [facility] [place] Start Date: 03/23/16 Stop Date: 03/24/16 Status: DiscontinuedVitamin D3 50,000 intl units oral capsule 1 cap(s), Oral, q7day, Prior auth rec'd for approval for 4 every 30 days, # 4 cap(s), 5 Refill(s), Start Date: 03/24/16 15:10:05 [address], [facility] [place] Special Instructions: Prior auth rec'd for [...] Start Date : 09/15/16 13:52:00 CDT, Pharmacy: [place], [place] Start Date: 09/15/16 Stop Date: 09/21/16 Status: DiscontinuedZofran 4 mg oral tablet 1 tab(s), Oral, q8hr interval, PRN nausea, # 15 tab(s), 0 Refill(s), Start Date : 09/21/16 14:02:43 CDT, Pharmacy: [place], [place] Start Date: 09/21/16 Stop Date: 09/26/16 Status: OrderedZofran ODT 4 mg oral tablet, disintegrating 1 tab(s), Oral, q8hr interval, PRN nausea, # 30 tab(s), 0 Refill(s), Start Date : 02/14/16 10:26:00 CDT, [place] Start Date: 02/14/16 Stop Date: 06/27/16 [...]
--- OUTSIDE RECORDS SUMMARY | 2016-11-05 14:47 | XMS REPORT | Summary of Care ---
:1975 Author Organization Care Team Providers Name Role Phone Rolanda Garcia Primary Care Physician Encounter Date(s): 09/16/16 - 09/16/[address] [place], [place] 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, Pharmacy: [facility], [place] Start Date: 02/21/16 Stop Date: 05/02/16 Status: CompletedamLODIPine 10 mg oral tablet 1 tab(s), Oral, Daily, # 30 tab(s), 2 Refill(s), Start Date: 05/02/16 11:23:44 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 OPERATOR, [facility] [place] [place] Start Date: 05/02/16 Stop Date: 08/25/16 Status: Completedamoxicillin 875 mg oral tablet 1 tab(s), Oral, BID, # 20 tab(s), 0 Refill(s), Start Date: 03/22/16 11:14:00 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 OPERATOR , [facility] [facility] [place] Start Date: 03/22/16 Stop Date: 04/05/16 Status: CompletedAzithromycin 5 Day Dose Pack 250 mg oral tablet 1 packet(s), Oral, Per Package Label, as directed on package labeling, # 6 tab(s ), 0 Refill(s), Start Date: 03/31/16 8:53:00 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 OPERATOR, [facility] [facility] [place] Special Instructions: as directed on package [...] EA, 0 Refill(s), Start Date: 05/02/16 11:21:00 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 OPERATOR, Pharmacy: [facility] [place], [place] Special Instructions: 1 tab(s) Oral every 72 hours x 3 doses Start Date: 05/02/16 Stop Date: 06/27/16 Status: CompletedDiflucan 150 mg oral tablet 1 tab(s), Oral, ONETIME, # 1 tab(s), 0 Refill(s), Start Date: 04/21/16 15:18:00 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 OPERATOR, [facility] [place] [place] Start Date: 04/21/16 Stop Date: 05/02/16 Status: CompletedDiflucan 150 mg oral tablet 1 tab(s), Oral, ONETIME, # 1 tab(s), 0 Refill(s), Start Date: 04/05/16 11:56:00 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 OPERATOR Start Date: 04/05/16 Stop Date: 05/02/16 Status: Completedgabapentin 300 mg oral capsule 2 cap(s), Oral, TID, 0 Refill(s), Start Date: 02/14/16 9:51:00 CDT Start Date: 02/14/16 Status: OrderedhydroCHLOROthiazide 25 mg oral tablet 1 tab(s), Oral, Daily, # 30 tab(s), 2 Refill(s), Start Date: 02/21/16 9:57:00 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, Pharmacy: [facility] [place], [place] Start Date: 02/21/16 Stop Date: 05/02/16 Status: Completedhydrochlorothiazide 25 mg oral tablet 1 tab(s), Oral, Daily, # 30 tab(s), 0 Refill(s), Start Date: 08/19/15 11:07:00 CDT Start Date: 08/19/15 Stop Date: 02/21/16 Status: DiscontinuedhydroCHLOROthiazide 25 mg oral tablet 1 tab(s), Oral, Daily, # 30 tab(s), 2 Refill(s), Start Date: 08/25/16 14:13:52 CDT, [facility] [place] Start Date: 08/25/16 Status: OrderedhydroCHLOROthiazide 25 mg oral tablet 1 tab(s), Oral, Daily, # 30 tab(s), 2 Refill(s), Start Date: 05/02/16 11:23:43 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, Pharmacy: [facility] [place], [place] Start Date: 05/02/16 Stop Date: 08/25/16 [...] Start Date: 11/30/15 9:35:00 CDT , Pharmacy: [place], [place] Start Date: 11/30/15 Stop Date: 06/27/16 Status: CompletedLipitor 10 mg oral tablet 1 tab(s), Oral, Daily, # 30 tab(s), 5 Refill(s), Start Date: 06/27/16 9:56:00 CDT, Pharmacy: [place], [place] Start Date: 06/27/16 Status: OrderedMedrol 4 mg oral tablet 1 packet(s), Oral, ONETIME, as directed on package labeling, # 21 tab(s), 0 Refill(s), Start Date: 11/25/15 15:31:00 CDT, Pharmacy: [place], [place] Special Instructions: as directed on package labeling Start Date: 11/25/15 Stop Date: 02/14/16 Status: Completedmeloxicam 15 mg oral tablet 0.5 tab(s), Oral, BID, 0 Refill(s), Start Date: 06/27/16 9:20:00 CDT Start Date: 06/27/16 Status: OrderedmetroNIDAZOLE 500 mg oral tablet 1 tab(s), Oral, q8hr interval, # 42 tab(s), 0 Refill(s), Start Date: 09/16/16 13 :40:00 CDT, Pharmacy: [place], [place] Start Date: 09/16/16 Stop Date: 09/30/16 [...] cap(s), 0 Refill(s), Start Date: 04/05/16 11:56:00 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 OPERATOR Start Date: 04/05/16 Stop Date: 05/02/16 [...] mL, 0 Refill(s), Start Date: 05/02/16 11:28:00 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 OPERATOR, Pharmacy: [facility] [place], [place] Start Date: 05/02/16 Stop Date: 05/09/16 Status: Completedpotassium chloride 99 mg oral tablet 1 tab(s), Oral, Daily, # 100 tab(s), 0 Refill(s), Start Date: 08/19/15 11:08:00 CDT Start Date: 08/19/15 Status: OrderedraNITIdine 150 mg oral tablet 1 tab(s), Oral, BID, # 60 tab(s), 0 Refill(s), Start Date: 09/15/16 13:52:00 CDT , [facility] [place] Start Date: 09/15/16 Stop Date: 10/15/16 [...] cap(s), 0 Refill(s), Start Date: 03/23/16 11:08:00 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 OPERATOR, Pharmacy: [place], [place] Start Date: 03/23/16 Stop Date: 03/24/16 Status: DiscontinuedVitamin D3 50,000 intl units oral capsule 1 cap(s), Oral, q7day, Prior auth rec'd for approval for 4 every 30 days, # 4 cap(s), 5 Refill(s), Start Date: 03/24/16 15:10:05 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 OPERATOR, Pharmacy: [place], [place] Special Instructions: Prior auth rec'd for [...] Start Date : 09/15/16 13:52:00 CDT, [facility] [place] Start Date: 09/15/16 Stop Date: 09/20/16 Status: OrderedZofran ODT 4 mg oral tablet, disintegrating 1 tab(s), Oral, q8hr interval, PRN nausea, # 30 tab(s), 0 Refill(s), Start Date : 02/14/16 10:26:00 CDT, [facility]acy: [facility] [place] [place] Start Date: 02/14/16 Stop Date: 06/27/16 Status: CompletedZyrTEC 10 mg oral tablet 1 tab(s), Oral, Daily, # 30 tab(s), 0 Refill(s), Start Date: 08/19/15 11:13:00 CDT Start Date: 08/19/15 Status: Ordered Results Patient Viewable Results Most recent to oldest [Reference Range]: 1 Cryptospor Ag [Negative] Negative (09/16/16 9:30 AM) Giardia Ag [Negative] Negative (09/16/16 9:30 AM) Giardia Int [Acceptable] Acceptable (09/16/16 9:30 AM) C. diff toxin [Negative] Positive1 *ABN* (09/16/16 9:30 AM) 1Result Comment: Results called and read back to Dr Figueroa 09/16/2016 1:18:48 PM CDT mmwMicrobiology Reports TEST:Enteric Pathogens Panel STATUS:Auth (Verified) BODY SITE: SOURCE:Stool COLLECTED DATE/TIME:09/16/16 9:30 AMFINAL REPORTNEGATIVE for Campylobacter ssp., Salmonella ssp., Shigella ssp., Vibrio ssp., Yersinia enterocolitica, Shiga Toxin 1& 2, Norovirus, and Rotavirus. Immunizations Vaccine Date Refusal Reason influenza virus vaccine, inactivated 02/14/16 tetanus-diphth toxoids (Td) adult/adol 06/27/16 Procedures Procedure Date Related Diagnosis Body Site Dilation and curettage Hysterectomy Removal of gallbladder Rotator cuff repair Tubal ligation Social History No data available for this section Assessment and Plan No data available for this section
--- OUTSIDE RECORDS SUMMARY | 2016-11-05 14:47 | XMS REPORT | Summary of Care ---
:1975 Author Organization [facility] Address [address] [place] [id number] Care Team Providers Name Role Phone Rolanda Garcia Primary Care Physician Encounter Date(s): 09/21/16 - 09/21/[address] [address] [facility] Discharge Diagnosis: Nausea Discharge Diagnosis: LLQ abdominal pain Discharge Diagnosis: Clostridium difficile diarrhea Discharge Diagnosis: Diarrhea Discharge Disposition: 01 Discharged to Home or Self Care Attending Physician: SUZIE Thompson Referring Physician: SUZIE Thompson Vital Signs Most recent to oldest [Reference Range]: 1 Temperature Tympanic [36.6-38.1 DegC] 36.3 DegC *LOW* (09/21/16 1:13 PM) Temperature C to F 97.3 (09/21/16 1:13 PM) Peripheral Pulse Rate [60-100 bpm] 97 bpm (09/21/16 1:13 PM) Blood Pressure [90-130/60-90 mmHg] 126/84mmHg (09/21/16 1:13 PM) Mean Arterial Pressure, Cuff 98 mmHg (09/21/16 1:13 PM) Most recent to oldest [Reference Range]: 1 Height/Length Measured 162 cm (09/21/16 1:13 PM) Weight Dosing 76.1 kg (09/21/16 1:13 PM) Weight Measured 76.1 kg (09/21/16 1:13 PM) BSA Measured 1.81 m2 (09/21/16 1:13 PM) Body Mass Index Measured 29 kg/m2 (09/21/16 1:13 PM) Problem List Condition Effective Dates Status [...] Refill(s), Start Date: 08/25/16 14:13:51 CDT, Pharmacy: [place], [place] Start Date: 08/25/16 Status: OrderedamLODIPine 10 mg oral tablet 1 tab(s), Oral, Daily, # 30 tab(s), 2 Refill(s), Start Date: 02/21/16 9:51:00 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, [facility]: [facility] [place] [place] Start Date: 02/21/16 Stop Date: 05/02/16 Status: CompletedamLODIPine 10 mg oral tablet 1 tab(s), Oral, Daily, # 30 tab(s), 2 Refill(s), Start Date: 05/02/16 11:23:44 KOHINOOR OPERATOR, [facility] [place] [place] Start Date: 05/02/16 Stop Date: 08/25/16 Status: Completedamoxicillin 875 mg oral tablet 1 tab(s), Oral, BID, # 20 tab(s), 0 Refill(s), Start Date: 03/22/16 11:14:00 KOHINOOR OPERATOR , [facility] [place] [place] Start Date: 03/22/16 Stop Date: 04/05/16 Status: CompletedAzithromycin 5 Day Dose Pack 250 mg oral tablet 1 packet(s), Oral, Per Package Label, as directed on package labeling, # 6 tab(s ), 0 Refill(s), Start Date: 03/31/16 8:53:00 KOHINOOR OPERATOR, [facility] [place] [place] Special Instructions: as directed on package labeling Start Date: 03/31/16 Stop Date: 12/21/16 Status: CompletedBlack Cohosh 540 mg Black Cohosh 540 mg, 0 Refill(s), Supply Start Date: 08/19/15 Status: OrderedCipro 500 mg oral tablet 1 tab(s), Oral, BID, # 20 tab(s), 0 Refill(s), Start Date: 09/21/16 14:01:00 CDT , Pharmacy: [place], [place] Start Date: 09/21/16 Stop Date: 10/01/16 Status: OrderedDaily Multiple for Women 1 tab(s), Oral, Daily, 0 Refill(s), Start Date: 08/19/15 11:09:00 CDT Start Date: 08/19/15 Status: OrderedDiflucan 150 mg oral tablet See Instructions, 1 tab(s) Oral every 72 hours x 3 doses, # 3 EA, 0 Refill(s), Start Date: 05/02/16 11:21:00 KOHINOOR OPERATOR, Pharmacy: [place], [place] Special Instructions: 1 tab(s) Oral every 72 hours x 3 doses Start Date: 05/02/16 Stop Date: 06/27/16 Status: CompletedDiflucan 150 mg oral tablet 1 tab(s), Oral, ONETIME, # 1 tab(s), 0 Refill(s), Start Date: 04/21/16 15:18:00 KOHINOOR OPERATOR, Pharmacy: [place], [place] Start Date: 04/21/16 Stop Date: 05/02/16 Status: CompletedDiflucan 150 mg oral tablet 1 tab(s), Oral, ONETIME, # 1 tab(s), 1 Refill(s), Start Date: 09/21/16 16:16:00 CDT, Pharmacy: [place], [place] Start Date: 09/21/16 Status: OrderedDiflucan 150 mg oral tablet 1 tab(s), Oral, ONETIME, # 1 tab(s), 0 Refill(s), Start Date: 04/05/16 11:56:00 KOHINOOR OPERATOR Start Date: 04/05/16 Stop Date: 05/02/16 Status: Completedgabapentin 300 mg oral capsule 2 cap(s), Oral, TID, 0 Refill(s), Start Date: 02/14/16 9:51:00 CDT Start Date: 02/14/16 Status: OrderedhydroCHLOROthiazide 25 mg oral tablet 1 tab(s), Oral, Daily, # 30 tab(s), 2 Refill(s), Start Date: 02/21/16 9:57:00 KOHINOOR OPERATOR, Pharmacy: [facility] [place], [place] Start Date: 02/21/16 Stop Date: 05/02/16 Status: Completedhydrochlorothiazide 25 mg oral tablet 1 tab(s), Oral, Daily, # 30 tab(s), 0 Refill(s), Start Date: 08/19/15 11:07:00 CDT Start Date: 08/19/15 Stop Date: 02/21/16 Status: DiscontinuedhydroCHLOROthiazide 25 mg oral tablet 1 tab(s), Oral, Daily, # 30 tab(s), 2 Refill(s), Start Date: 08/25/16 14:13:52 CDT, [facility] [place] Start Date: 08/25/16 Status: OrderedhydroCHLOROthiazide 25 mg oral tablet 1 tab(s), Oral, Daily, # 30 tab(s), 2 Refill(s), Start Date: 05/02/16 11:23:43 KOHINOOR OPERATOR, [facility] [place] [place] Start Date: 05/02/16 Stop Date: 08/25/16 [...] Start Date: 11/30/15 9:35:00 CDT , Pharmacy: [place], [place] Start Date: 11/30/15 Stop Date: 06/27/16 Status: CompletedLipitor 10 mg oral tablet 1 tab(s), Oral, Daily, # 30 tab(s), 5 Refill(s), Start Date: 06/27/16 9:56:00 CDT, Pharmacy: [place], [place] Start Date: 06/27/16 Status: OrderedMedrol 4 mg oral tablet 1 packet(s), Oral, ONETIME, as directed on package labeling, # 21 tab(s), 0 Refill(s), Start Date: 11/25/15 15:31:00 CDT, Pharmacy: [place], [place] Special Instructions: as directed on package labeling Start Date: 11/25/15 Stop Date: 02/14/16 Status: Completedmeloxicam 15 mg oral tablet 0.5 tab(s), Oral, BID, 0 Refill(s), Start Date: 06/27/16 9:20:00 CDT Start Date: 06/27/16 Status: OrderedmetroNIDAZOLE 500 mg oral tablet 1 tab(s), Oral, q8hr interval, # 42 tab(s), 0 Refill(s), Start Date: 09/16/16 13 :40:00 CDT, Pharmacy: [place], [place] Start Date: 09/16/16 Stop Date: 09/30/16 [...] cap(s), 0 Refill(s), Start Date: 04/05/16 11:56:00 KOHINOOR OPERATOR Start Date: 04/05/16 Stop Date: 05/02/16 [...] mL, 0 Refill(s), Start Date: 05/02/16 11:28:00 KOHINOOR OPERATOR, [facility] [place] [place] Start Date: 05/02/16 Stop Date: 05/09/16 Status: Completedpotassium chloride 99 mg oral tablet 1 tab(s), Oral, Daily, # 100 tab(s), 0 Refill(s), Start Date: 08/19/15 11:08:00 CDT Start Date: 08/19/15 Status: OrderedraNITIdine 150 mg oral tablet 1 tab(s), Oral, BID, # 60 tab(s), 0 Refill(s), Start Date: 09/15/16 13:52:00 CDT , [facility] [place] Start Date: 09/15/16 Stop Date: 10/15/16 [...] cap(s), 0 Refill(s), Start Date: 03/23/16 11:08:00 KOHINOOR OPERATOR, Pharmacy: [place], [place] Start Date: 03/23/16 Stop Date: 03/24/16 Status: DiscontinuedVitamin D3 50,000 intl units oral capsule 1 cap(s), Oral, q7day, Prior auth rec'd for approval for 4 every 30 days, # 4 cap(s), 5 Refill(s), Start Date: 03/24/16 15:10:05 KOHINOOR OPERATOR, Pharmacy: [place], [place] Special Instructions: Prior auth rec'd for [...] Start Date : 09/15/16 13:52:00 CDT, Pharmacy: [place], [place] Start Date: 09/15/16 Stop Date: 09/21/16 Status: DiscontinuedZofran 4 mg oral tablet 1 tab(s), Oral, q8hr interval, PRN nausea, # 15 tab(s), 0 Refill(s), Start Date : 09/21/16 14:02:43 CDT, Pharmacy: [place], [place] Start Date: 09/21/16 Stop Date: 09/26/16 Status: OrderedZofran ODT 4 mg oral tablet, disintegrating 1 tab(s), Oral, q8hr interval, PRN nausea, # 30 tab(s), 0 Refill(s), Start Date : 02/14/16 10:26:00 CDT, Pharmacy: [facility] [place], [place] Start Date: 02/14/16 Stop Date: 06/27/16 Status: CompletedZyrTEC 10 mg oral tablet 1 tab(s), Oral, Daily, # 30 tab(s), 0 Refill(s), Start Date: 08/19/15 11:13:00 CDT Start Date: 08/19/15 Status: Ordered Results Patient Viewable Results Most recent to oldest [Reference Range]: 1 WBC [4.8-10.8 thou/mm3] 18.3 thou/mm3 *HI* (09/21/16 1:44 PM) RBC [4.20-5.40 Mil/mm3] 5.03 Mil/mm3 (09/21/16 1:44 PM) Hgb [12.0-16.0 g/dL] 15.7 g/dL (09/21/16 1:44 PM) Hct [37.0-47.0 %] 45.7 % (09/21/16 1:44 PM) MCV [80.0-94.0 fL] 90.9 fL (09/21/16 1:44 PM) MCH [25.0-38.0 pg/cell] 31.2 pg/cell (09/21/16 1:44 PM) MCHC [31.0-37.0 g/dL] 34.4 g/dL (09/21/16 1:44 PM) RDW [11.6-14.8 %] 13.9 % (09/21/16 1:44 PM) Platelet [130-400 thou/mm3] 299 thou/mm3 (09/21/16 1:44 PM) MPV [0.0-99.8 fL] 9.3 fL (09/21/16 1:44 PM) Neutrophils % Auto [50.0-75.0 %] 75.5 % *HI* (09/21/16 1:44 PM) Lymphocytes % Auto [15.0-41.0 %] 17.0 % (09/21/16 1:44 PM) Monocytes % Auto [4.0-10.0 %] 6.3 % (09/21/16 1:44 PM) Eosinophils % Auto [0.0-6.0 %] 1.0 % (09/21/16 1:44 PM) Basophil % Auto [0.0-1.0 %] 0.2 % (09/21/16 1:44 PM) Neutrophils Absolute [1.5-5.9 thou/mm3] 13.8 thou/mm3 *HI* (09/21/16 1:44 PM) Lymphocytes Absolute [1.5-4.0 thou/mm3] 3.1 thou/mm3 (09/21/16 1:44 PM) Monocytes Absolute [0.0-0.9 thou/mm3] 1.2 thou/mm3 *HI* (09/21/16 1:44 PM) Eosinophil Absolute [0.0-0.7 thou/mm3] 0.2 thou/mm3 (09/21/16 1:44 PM) Basophil Absolute [0.0-0.2 thou/mm3] 0.0 thou/mm3 (09/21/16 1:44 PM) Sodium Lvl [136-145 mmol/L] 139 mmol/L (09/21/16 1:44 PM) Potassium Lvl [3.5-5.1 mmol/L] 3.6 mmol/L (09/21/16 1:44 PM) Chloride Lvl [98-107 mmol/L] 103 mmol/L (09/21/16 1:44 PM) Bicarbonate Lvl [21-32 mmol/L] 30 mmol/L (09/21/16 1:44 PM) Anion Gap [12-19] 10 *LOW* (09/21/16 1:44 PM) Glucose Lvl [74-106 mg/dL] 112 mg/dL *HI* (09/21/16 1:44 PM) BUN [7-18 mg/dL] 9 mg/dL (09/21/16 1:44 PM) Creatinine Lvl [0.55-1.02 mg/dL] 0.84 mg/dL (09/21/16 1:44 PM) BUN/Creat Ratio 11 *NA* (09/21/16 1:44 PM) eGFR AA [>=60] >60 (09/21/16 1:44 PM) eGFR NATE [>=60] >60 (09/21/16 1:44 PM) Calcium Lvl [8.5-10.1 mg/dL] 8.7 mg/dL (09/21/16 1:44 PM) Total Protein [6.4-8.2 g/dL] 7.3 g/dL (09/21/16 1:44 PM) Albumin Lvl [3.4-5.0 g/dL] 3.5 g/dL (09/21/16 1:44 PM) Globulin 4 g/dL *NA* (09/21/16 1:44 PM) A/G Ratio [1.0-2.0] 0.9 *LOW* (09/21/16 1:44 PM) Bilirubin Total [0.2-1.0 mg/dL] 0.3 mg/dL (09/21/16 1:44 PM) Alkaline Phosphatase [46-116 unit/L] 71 unit/L (09/21/16 1:44 PM) AST [15-37 unit/L] 19 unit/L (09/21/16 1:44 PM) ALT [14-59 unit/L] 23 unit/L (09/21/16 1:44 PM) Immunizations Vaccine Date Refusal Reason influenza virus vaccine, inactivated 02/14/16 tetanus-diphth toxoids (Td) adult/adol 06/27/16 Procedures Procedure Date Related Diagnosis Body Site Dilation and curettage Hysterectomy Removal of gallbladder Rotator cuff repair Tubal ligation Social History No data available for this section Assessment and Plan No data available for this section
--- OUTSIDE RECORDS SUMMARY | 2016-11-05 14:47 | XMS REPORT | Summary of Care ---
:1975 Author Organization [facility] Address [address] [place] [id number] Care Team Providers Name Role Phone Rolanda Garcia Primary Care Physician Encounter Date(s): 05/02/16 - 05/02/[address] [address] [facility] Discharge Disposition: 01 Discharged to Home or Self Care Attending Physician: Rolanda Garcia MD Referring Physician: Rolanda Garcia MD Vital Signs Most recent to oldest [Reference Range]: 1 Temperature Tympanic [36.6-38.1 DegC] 36.5 DegC *LOW* (05/02/16 11:09 AM) Temperature C to F 97.7 (05/02/16 11:09 AM) Peripheral Pulse Rate [60-100 bpm] 83 bpm (05/02/16 11:09 AM) SpO2 97 % (05/02/16 11:09 AM) Blood Pressure [90-130/60-90 mmHg] 118/64mmHg (05/02/16 11:09 AM) Mean Arterial Pressure, Cuff 82 mmHg (05/02/16 11:09 AM) Height/Length Measured 162.5 cm (05/02/16 11:09 AM) Weight Dosing 78.30 kg1 (05/02/16 11:18 AM) Weight Measured 78.3 kg (05/02/16 11:09 AM) BSA Measured 1.84 m2 (05/02/16 11:09 AM) Body Mass Index Measured 29.65 kg/m2 (05/02/16 11:09 AM) 1Result Comment: This result was because the dosing weight was either not entered or it is>30 days old. 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 LABORER, Pharmacy: [facility] [place], [place] Start Date: 05/02/16 Status: Orderedamoxicillin 875 mg oral tablet 1 tab(s), Oral, BID, # 20 tab(s), 0 Refill(s), Start Date: 03/22/16 11:14:00 LANDSCAPE 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 LABORER , Pharmacy: [facility] [place] [place] Start Date: 03/22/16 Stop Date: 04/05/16 Status: CompletedAzithromycin 5 Day Dose Pack 250 mg oral tablet 1 packet(s), Oral, Per Package Label, as directed on package labeling, # 6 tab(s ), 0 Refill(s), Start Date: 03/31/16 8:53:00 LANDSCAPE 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 LABORER, Pharmacy: [facility] [place] [place] Start Date: 03/31/16 Stop Date: 04/05/16 Status: [...] EA, 0 Refill(s), Start Date: 05/02/16 11:21:00 LANDSCAPE 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 LABORER, Pharmacy: [facility] [place], [place] Start Date: 05/02/16 Status: OrderedDiflucan 150 mg oral tablet 1 tab(s), Oral, ONETIME, # 1 tab(s), 0 Refill(s), Start Date: 04/21/16 15:18:00 LANDSCAPE 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 LABORER, Pharmacy: [facility] [place], [place] Start Date: 04/21/16 Stop Date: 05/02/16 Status: CompletedDiflucan 150 mg oral tablet 1 tab(s), Oral, ONETIME, # 1 tab(s), 0 Refill(s), Start Date: 04/05/16 11:56:00 LANDSCAPE 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 LABORER Start Date: 04/05/16 Stop Date: 05/02/16 Status: Completedgabapentin 300 mg oral capsule 3 cap(s), Oral, TID, 0 Refill(s), Start Date: 02/14/16 9:51:00 CDT Start Date: 02/14/16 Status: OrderedhydroCHLOROthiazide 25 mg oral tablet 1 tab(s), Oral, Daily, # 30 tab(s), 2 Refill(s), Start Date: 02/21/16 9:57:00 LANDSCAPE 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 LABORER, Pharmacy: [facility] [place] Start Date: 02/21/16 Stop Date: 05/02/16 Status: Completedhydrochlorothiazide 25 mg oral tablet 1 tab(s), Oral, Daily, # 30 tab(s), 0 Refill(s), Start Date: 08/19/15 11:07:00 CDT Start Date: 08/19/15 Stop Date: 02/21/16 Status: DiscontinuedhydroCHLOROthiazide 25 mg oral tablet 1 tab(s), Oral, Daily, # 30 tab(s), 2 Refill(s), Start Date: 05/02/16 11:23:43 LANDSCAPE 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 LABORER, Pharmacy: [facility] [place] Start Date: 05/02/16 Status: OrderedHYDROcodone-acetaminophen 5 [...] Start Date: 11/30/15 9:35:00 CDT , Pharmacy: [place], [place] Start Date: 11/30/15 Status: OrderedMedrol 4 mg oral tablet 1 packet(s), Oral, ONETIME, as directed on package labeling, # 21 tab(s), 0 Refill(s), Start Date: 11/25/15 15:31:00 CDT, Pharmacy: [place], [place] Start Date: 11/25/15 Stop Date: 02/14/16 Status: CompletedNorco 5 mg-325 mg oral tablet [...] Date: 10/28/15 15:19:28 CDT, other reason (Rx) Start Date: 10/28/15 Status: OrderedNorco 5 mg-325 mg oral tablet 1 tab(s), Oral, q6hr, PRN for pain, written RX given to patient, # 120 tab(s), 0 Refill(s), Start Date: 09/28/15 9:18:00 CDT, other reason (Rx) Start Date: 09/28/15 Stop Date: 10/28/15 Status: CompletedOmnicef 300 mg oral capsule 1 cap(s), Oral, q12hr, # 20 cap(s), 0 Refill(s), Start Date: 04/05/16 11:56:00 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ER Start Date: 04/05/16 Stop Date: 05/02/16 Status: CompletedoxyCODONE-acetaminophen 5 mg-325 mg oral tablet See Instructions, 1 tab(s) Oral q4-6hr interval Max 7 per day, # 90 tab(s), 0 Refill(s), Start Date: 08/19/15 11:21:00 CDT Start Date: 08/19/15 Stop Date: 08/19/15 Status: Discontinuedpolymyxin B-trimethoprim 10,000 units-1 mg/mL ophthalmic solution 2 drop(s), Eye-Both, QID, X 7 days, # 10 mL, 0 Refill(s), Start Date: 05/02/16 11:28:00 LANDSCAPE 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 LABORER, Pharmacy: [facility] [place], [place] Start Date: 05/02/16 Stop Date: 05/09/16 Status: Orderedpotassium chloride 99 mg oral tablet 1 tab(s), [...] CDT Start Date: 08/19/15 Status: OrderedVitamin D3 50,000 intl units oral capsule 1 cap(s), Oral, q7day, # 12 cap(s), 0 Refill(s), Start Date: 03/23/16 11:08:00 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, [facility]acy: [facility] [place], [place] Start Date: 03/23/16 Stop Date: 03/24/16 Status: DiscontinuedVitamin D3 50,000 intl units oral capsule 1 cap(s), Oral, q7day, Prior auth rec'd for approval for 4 every 30 days, # 4 cap(s), 5 Refill(s), Start Date: 03/24/16 15:10:05 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, [facility]acy: [facility] [place] [place] Start Date: 03/24/16 Stop Date: 05/19/16 Status: OrderedVitamin D3 5000 intl units oral tablet 1 tab(s), Oral, Daily, # 100 tab(s), 0 Refill(s), Start Date: 08/19/15 11:10:00 CDT Start Date: 08/19/15 Status: OrderedZofran ODT 4 mg oral tablet, disintegrating 1 tab(s), Oral, q8hr interval, PRN nausea, # 30 tab(s), 0 Refill(s), Start Date : 02/14/16 10:26:00 CDT, [facility]acy: [facility] [place] [place] Start Date: 02/14/16 Status: OrderedZyrTEC 10 mg oral tablet 1 tab(s), Oral, Daily, # 30 tab(s), 0 Refill(s), Start Date: 08/19/15 11:13:00 CDT Start Date: 08/19/15 Status: Ordered Results No data available for this section Immunizations Given and Recorded Vaccine Date Status Refusal Reason influenza virus vaccine, inactivated 02/14/16 Given Procedures Procedure Date Related Diagnosis Body Site Dilation and curettage Hysterectomy Removal of gallbladder Rotator cuff repair Tubal ligation Social History No data available for this section Assessment and Plan No data available for this section
--- OUTSIDE RECORDS SUMMARY | 2016-11-05 14:47 | XMS REPORT | Summary of Care ---
:1975 Author Organization [facility] Address [address] [place] [id number] Care Team Providers Name Role Phone Rolanda Garcia Primary Care Physician Encounter Date(s): 09/14/16 - 09/14/16 [facility] [address] [place] [id number] [facility] Discharge Disposition: 01 Discharged to Home or Self Care Attending Physician: JESUSITA Matthews Referring Physician: Rolanda Garcia MD Vital Signs [...] Refill(s), Start Date: 08/25/16 14:13:51 CDT, Pharmacy: [facility], [place], [place] Start Date: 08/25/16 Status: OrderedamLODIPine 10 mg oral tablet 1 tab(s), Oral, Daily, # 30 tab(s), 2 Refill(s), Start Date: 02/21/16 9:51:00 AUTISM SPECIALIST, Pharmacy: [facility],[place], [place] Start Date: 02/21/16 Stop Date: 05/02/16 Status: CompletedamLODIPine 10 mg oral tablet 1 tab(s), Oral, Daily, # 30 tab(s), 2 Refill(s), Start Date: 05/02/16 11:23:44 AUTISM SPECIALIST, Pharmacy: [facility] [place], [place] Start Date: 05/02/16 Stop Date: 08/25/16 Status: Completedamoxicillin 875 mg oral tablet 1 tab(s), Oral, BID, # 20 tab(s), 0 Refill(s), Start Date: 03/22/16 11:14:00 AUTISM SPECIALIST , [place] [facility] [place] Start Date: 03/22/16 Stop Date: 04/05/16 Status: CompletedAzithromycin 5 Day Dose Pack 250 mg oral tablet 1 packet(s), Oral, Per Package Label, as directed on package labeling, # 6 tab(s ), 0 Refill(s), Start Date: 03/31/16 8:53:00 AUTISM SPECIALIST, Pharmacy: [facility] [place], [place] Special Instructions: as directed on package [...] EA, 0 Refill(s), Start Date: 05/02/16 11:21:00 AUTISM SPECIALIST, Pharmacy: [facility] [place], [place] Special Instructions: 1 tab(s) Oral every 72 hours x 3 doses Start Date: 05/02/16 Stop Date: 06/27/16 Status: CompletedDiflucan 150 mg oral tablet 1 tab(s), Oral, ONETIME, # 1 tab(s), 0 Refill(s), Start Date: 04/21/16 15:18:00 AUTISM SPECIALIST, Pharmacy: [facility] [place], [place] Start Date: 04/21/16 Stop Date: 05/02/16 Status: CompletedDiflucan 150 mg oral tablet 1 tab(s), Oral, ONETIME, # 1 tab(s), 0 Refill(s), Start Date: 04/05/16 11:56:00 AUTISM SPECIALIST Start Date: 04/05/16 Stop Date: 05/02/16 Status: Completedgabapentin 300 mg oral capsule 2 cap(s), Oral, TID, 0 Refill(s), Start Date: 02/14/16 9:51:00 CDT Start Date: 02/14/16 Status: OrderedhydroCHLOROthiazide 25 mg oral tablet 1 tab(s), Oral, Daily, # 30 tab(s), 2 Refill(s), Start Date: 02/21/16 9:57:00 AUTISM SPECIALIST, Pharmacy: [facility] [place], [place] Start Date: 02/21/16 Stop Date: 05/02/16 Status: Completedhydrochlorothiazide 25 mg oral tablet 1 tab(s), Oral, Daily, # 30 tab(s), 0 Refill(s), Start Date: 08/19/15 11:07:00 CDT Start Date: 08/19/15 Stop Date: 02/21/16 Status: DiscontinuedhydroCHLOROthiazide 25 mg oral tablet 1 tab(s), Oral, Daily, # 30 tab(s), 2 Refill(s), Start Date: 08/25/16 14:13:52 CDT, [facility] [place] Start Date: 08/25/16 Status: OrderedhydroCHLOROthiazide 25 mg oral tablet 1 tab(s), Oral, Daily, # 30 tab(s), 2 Refill(s), Start Date: 05/02/16 11:23:43 AUTISM SPECIALIST, [facility] [place] [place] Start Date: 05/02/16 Stop Date: 08/25/16 [...] Start Date: 11/30/15 9:35:00 CDT , Pharmacy: [place], [place] Start Date: 11/30/15 Stop Date: 06/27/16 Status: CompletedLipitor 10 mg oral tablet 1 tab(s), Oral, Daily, # 30 tab(s), 5 Refill(s), Start Date: 06/27/16 9:56:00 CDT, Pharmacy: [place], [place] Start Date: 06/27/16 Status: OrderedMedrol 4 mg oral tablet 1 packet(s), Oral, ONETIME, as directed on package labeling, # 21 tab(s), 0 Refill(s), Start Date: 11/25/15 15:31:00 CDT, Pharmacy: [place], [place] Special Instructions: as directed on package [...] cap(s), 0 Refill(s), Start Date: 04/05/16 11:56:00 AUTISM SPECIALIST Start Date: 04/05/16 Stop Date: 05/02/16 Status: [...] mL, 0 Refill(s), Start Date: 05/02/16 11:28:00 AUTISM SPECIALIST, [facility] [place] Start Date: 05/02/16 Stop Date: 05/09/16 [...] cap(s), 0 Refill(s), Start Date: 03/23/16 11:08:00 AUTISM SPECIALIST, Pharmacy: [place], [place] Start Date: 03/23/16 Stop Date: 03/24/16 Status: DiscontinuedVitamin D3 50,000 intl units oral capsule 1 cap(s), Oral, q7day, Prior auth rec'd for approval for 4 every 30 days, # 4 cap(s), 5 Refill(s), Start Date: 03/24/16 15:10:05 AUTISM SPECIALIST, Pharmacy: [place], [place] Special Instructions: Prior auth rec'd for [...] Start Date : 02/14/16 10:26:00 CDT, Pharmacy: [place], [place] Start Date: 02/14/16 Stop Date: 06/27/16 [...]
--- OUTSIDE RECORDS SUMMARY | 2016-11-05 14:48 | XMS REPORT | Summary of Care ---
:1975 Author Organization [facility] Address [address] [place] [id number] Care Team Providers Name Role Phone Rolanda Garcia Primary Care Physician Encounter Date(s): 06/20/16 - 06/20/[address] [address] [facility] Discharge Disposition: Discharged to [...] tab(s), 2 Refill(s), Start Date: 02/21/16 9:51:00 RESIDENT CARE ASSISTANT, [facility] [place] [place] Start Date: 02/21/16 Stop Date: 05/02/16 Status: CompletedamLODIPine 10 mg oral tablet 1 tab(s), Oral, Daily, # 30 tab(s), 2 Refill(s), Start Date: 05/02/16 11:23:44 RESIDENT CARE ASSISTANT, Pharmacy: [facility] [place], [place] Start Date: 05/02/16 Status: Orderedamoxicillin 875 mg oral tablet 1 tab(s), Oral, BID, # 20 tab(s), 0 Refill(s), Start Date: 03/22/16 11:14:00 RESIDENT CARE ASSISTANT , [facility]acy: [facility] [place] [place] Start Date: 03/22/16 Stop Date: 04/05/16 Status: CompletedAzithromycin 5 Day Dose Pack 250 mg oral tablet 1 packet(s), Oral, Per Package Label, as directed on package labeling, # 6 tab(s ), 0 Refill(s), Start Date: 03/31/16 8:53:00 RESIDENT CARE ASSISTANT, Pharmacy: [facility] [place], [place] Special Instructions: as directed on package [...] EA, 0 Refill(s), Start Date: 05/02/16 11:21:00 RESIDENT CARE ASSISTANT, Pharmacy: [facility] [place], [place] Special Instructions: 1 tab(s) Oral every 72 hours x 3 doses Start Date: 05/02/16 Status: OrderedDiflucan 150 mg oral tablet 1 tab(s), Oral, ONETIME, # 1 tab(s), 0 Refill(s), Start Date: 04/21/16 15:18:00 RESIDENT CARE ASSISTANT, Pharmacy: [facility] [place] [place] Start Date: 04/21/16 Stop Date: 05/02/16 Status: CompletedDiflucan 150 mg oral tablet 1 tab(s), Oral, ONETIME, # 1 tab(s), 0 Refill(s), Start Date: 04/05/16 11:56:00 RESIDENT CARE ASSISTANT Start Date: 04/05/16 Stop Date: 05/02/16 Status: Completedgabapentin 300 mg oral capsule 3 cap(s), Oral, TID, 0 Refill(s), Start Date: 02/14/16 9:51:00 CDT Start Date: 02/14/16 Status: OrderedhydroCHLOROthiazide 25 mg oral tablet 1 tab(s), Oral, Daily, # 30 tab(s), 2 Refill(s), Start Date: 02/21/16 9:57:00 RESIDENT CARE ASSISTANT, Pharmacy: [facility] [place], [place] Start Date: 02/21/16 Stop Date: 05/02/16 Status: Completedhydrochlorothiazide 25 mg oral tablet 1 tab(s), Oral, Daily, # 30 tab(s), 0 Refill(s), Start Date: 08/19/15 11:07:00 CDT Start Date: 08/19/15 Stop Date: 02/21/16 Status: DiscontinuedhydroCHLOROthiazide 25 mg oral tablet 1 tab(s), Oral, Daily, # 30 tab(s), 2 Refill(s), Start Date: 05/02/16 11:23:43 RESIDENT CARE ASSISTANT, [place] [facility] [place] Start Date: 05/02/16 Status: OrderedHYDROcodone-acetaminophen 5 [...] 11/30/15 9:35:00 CDT , Pharmacy: [facility] [place], [place] Start Date: 11/30/15 Status: OrderedMedrol 4 mg oral tablet 1 packet(s), Oral, ONETIME, as directed on package labeling, # 21 tab(s), 0 Refill(s), Start Date: 11/25/15 15:31:00 CDT, Pharmacy: [place], [place] Special Instructions: as directed on package [...] cap(s), 0 Refill(s), Start Date: 04/05/16 11:56:00 RESIDENT CARE ASSISTANT Start Date: 04/05/16 Stop Date: 05/02/16 Status: [...] mL, 0 Refill(s), Start Date: 05/02/16 11:28:00 RESIDENT CARE ASSISTANT, Pharmacy: [facility] [place] [place] Start Date: 05/02/16 Stop Date: 05/09/16 [...] cap(s), 0 Refill(s), Start Date: 03/23/16 11:08:00 RESIDENT CARE ASSISTANT, Pharmacy: [facility] [place], [place] Start Date: 03/23/16 Stop Date: 03/24/16 Status: DiscontinuedVitamin D3 50,000 intl units oral capsule 1 cap(s), Oral, q7day, Prior auth rec'd for approval for 4 every 30 days, # 4 cap(s), 5 Refill(s), Start Date: 03/24/16 15:10:05 RESIDENT CARE ASSISTANT, [facility] [place] [place] Special Instructions: Prior auth rec'd for approval for 4 every 30 days Start Date: 03/24/16 Stop Date: 05/19/16 Status: OrderedVitamin D3 5000 intl units oral tablet 1 tab(s), Oral, Daily, # 100 tab(s), 0 Refill(s), Start Date: 08/19/15 11:10:00 CDT Start Date: 08/19/15 Status: OrderedZofran ODT 4 mg oral tablet, disintegrating 1 tab(s), Oral, q8hr interval, PRN nausea, # 30 tab(s), 0 Refill(s), Start Date : 02/14/16 10:26:00 CDT, Pharmacy: [facility] [place] Start Date: 02/14/16 Status: OrderedZyrTEC 10 mg oral tablet 1 tab(s), Oral, Daily, # 30 tab(s), 0 Refill(s), Start Date: 08/19/15 11:13:00 CDT Start Date: 08/19/15 Status: Ordered Results Patient Viewable Results Most recent to oldest [Reference Range]: 1 WBC [4.8-10.8 thou/mm3] 14.9 thou/mm3 *HI* (06/20/16 9:34 AM) RBC [4.20-5.40 Mil/mm3] 5.01 Mil/mm3 (06/20/16 9:34 AM) Hgb [12.0-16.0 g/dL] 15.6 g/dL (06/20/16 9:34 AM) Hct [37.0-47.0 %] 45.9 % (06/20/16 9:34 AM) MCV [80.0-94.0 fL] 91.6 fL (06/20/16 9:34 AM) MCH [25.0-38.0 pg/cell] 31.1 pg/cell (06/20/16 9:34 AM) MCHC [31.0-37.0 g/dL] 34.0 g/dL (06/20/16 9:34 AM) RDW [11.6-14.8 %] 14.2 % (06/20/16 9:34 AM) Platelet [130-400 thou/mm3] 329 thou/mm3 (06/20/16 9:34 AM) MPV [0.0-99.8 fL] 9.5 fL (06/20/16 9:34 AM) Cholesterol Total [0-200 mg/dL] 266 mg/dL *HI* (06/20/16 9:34 AM) Triglyceride [0-200 mg/dL] 489 mg/dL *HI* (06/20/16 9:34 AM) HDL Cholesterol [40-60 mg/dL] 35 mg/dL *LOW* (06/20/16 9:34 AM) LDL Cholesterol (Direct) [0-130] N/A1 *NA* (06/20/16 9:34 AM) Non HDL Cholesterol [0-160 mg/dL] 231 mg/dL *HI* (06/20/16 9:34 AM) 1Result Comment: Unable to report LDL due to triglyceride result> 400 mg/dL Immunizations Vaccine Date Refusal Reason influenza virus vaccine, inactivated 02/14/16 Procedures Procedure Date Related Diagnosis Body Site Dilation and curettage Hysterectomy Removal of gallbladder Rotator cuff repair Tubal ligation Social History No data available for this section Assessment and Plan No data available for this section
--- OUTSIDE RECORDS SUMMARY | 2016-11-05 14:48 | XMS REPORT | Summary of Care ---
:1975 Author Organization [facility] Address [address] [place] [phone] Care Team Providers Name Role Phone Juan Espinoza Miko Primary Care Physician Encounter Date(s): 09/08/15 - 09/08/[address] [address] Final: Low back pain Discharge Disposition: Discharged to Home or Self Care Attending Physician: Ronnie Coreas NP Admitting Physician: Ronnie Coreas NP Vital Signs No data available for this section Problem List Condition Effective Dates Status Health Status Informant Hypertension(Confirmed) Active Allergies, Adverse Reactions, Alerts No Known Allergies Medications amLODIPine 10 mg oral tablet 1 tab(s), Oral, Daily, # 30 tab(s), 0 Refill(s), Start Date: 08/19/15 11:06:00 CDT Start Date: 08/19/15 Status: OrderedBlack Cohosh 540 mg Black Cohosh 540 mg, 0 Refill(s), Supply Start Date: 08/19/15 Status: OrderedDaily Multiple for Women tab(s), Oral, Daily, 0 Refill(s), Start Date: 08/19/15 11:09:00 CDT Start Date: 08/19/15 Status: Orderedhydrochlorothiazide 25 mg oral tablet 1 tab(s), Oral, Daily, # 30 tab(s), 0 Refill(s), Start Date: 08/19/15 11:07:00 CDT Start Date: 08/19/15 Status: OrderedHYDROcodone-acetaminophen 5 mg-325 mg oral tablet 1 tab(s), Oral, q6hr, X 30 days, # 120 tab(s), 0 Refill(s), Start Date: 11:23:00 CDT, other reason (Rx) Start Date: 08/19/15 Stop Date: 09/18/15 Status: CompletedHYDROcodone-acetaminophen 5 mg-325 mg oral tablet 0 Refill(s), Start Date: 08/19/15 11:07:00 CDT Start Date: 08/19/15 Stop Date: 09/28/15 Status: CompletedNorco 5 mg-325 [...] RX given to patient Start Date: 09/28/15 Status: OrderedoxyCODONE-acetaminophen 5 mg-325 mg oral tablet See Instructions, 1 tab(s) Oral q4-6hr interval Max 7 per day, # 90 tab(s), 0 Refill(s), Start Date: 08/19/15 11:21:00 CDT Special Instructions: 1 tab(s) Oral q4-6hr interval Max 7 per day Start Date: 08/19/15 Stop Date: 08/19/15 Status: Discontinuedpotassium chloride 99 mg oral tablet 1 tab(s), Oral, Daily, # 100 tab(s), 0 Refill(s), Start Date: 08/19/15 11:08:00 CDT Start Date: 08/19/15 Status: OrderedVitamin B-12 1000 mcg oral tablet tab(s), Oral, Daily, 0 Refill(s), Start Date: 08/19/15 11:10:00 CDT Start Date: 08/19/15 Status: OrderedVitamin C 500 mg oral tablet 1 tab(s), Oral, Daily, # 30 tab(s), 0 Refill(s), Start Date: 08/19/15 11:09:00 CDT Start Date: 08/19/15 Status: OrderedVitamin D3 5000 intl units oral tablet 1 tab(s), Oral, Daily, # 100 tab(s), 0 Refill(s), Start Date: 08/19/15 11:10:00 CDT Start Date: 08/19/15 Status: OrderedZyrTEC 10 mg oral tablet 1 tab(s), Oral, Daily, # 30 tab(s), 0 Refill(s), Start Date: 08/19/15 11:13:00 CDT Start Date: 08/19/15 Status: Ordered Results No data available for this section Immunizations No data available for this section Procedures Procedure Date Related Diagnosis Body Site Hysterectomy Removal of gallbladder Rotator cuff repair Social History No data available for this section Assessment and Plan No data available for this section
--- OUTSIDE RECORDS SUMMARY | 2016-11-05 14:48 | XMS REPORT | Summary of Care ---
:1975 Author Organization [facility] Address [address] [place] [phone] Care Team Providers Name Role Phone Juan Espinoza Miko Primary Care Physician Encounter Date(s): 09/08/15 - 09/08/[address] [address] Final: Low back pain Discharge Disposition: Discharged [...]
[2016-11-05] MEDS ORDERED: HYDROcodone/ACETAMINOPHEN 1 EACH TABLET PO ONE (15:22)
[2016-11-05] MEDS ORDERED: HYDROcodone/ACETAMINOPHEN 1 EACH TABLET ONE (15:24)
[2016-11-05 15:28] VITALS: BP 115/81
== END 2016-11-05 15:32 | disposition home or self-care (01) ==
LOC: ER 14:01
DX: M53.3 Sacrococcygeal disorders, not elsewhere classified (principal); I10 Essential (primary) hypertension; G89.29 Other chronic pain; F41.8 Other specified anxiety disorders; Z72.0 Tobacco use